=== PATIENT | male | born 1955 | race Caucasian/White ===

== ENCOUNTER 2024-07-24 06:22 | Day surgery (SDC) | payer MEDICARE, OTHER, SELFPAY ==
[2024-06-30 13:28] LABS: Hematocrit 41.3 % (39.0-52.0); Hemoglobin 14.6 g/dL (13.0-18.0); Mean Corp Hgb Conc. 35.4 g/dL (33.0-37.0); Mean Corpuscular Hgb 33.9 pg (27.0-31.0); Mean Corpuscular Volume 95.8 fL (80.0-94.0); Mean Platelet Volume 10.7 fL (7.4-10.4); Platelet Count 201 10^3/uL (130-400); Red Blood Cell Count 4.31 10^6/uL (4.70-6.10); Red Cell Dist. Width 12.6 % (11.5-14.5); White Blood Cell Count 7.4 10^3/uL (4.8-10.8)
[2024-06-30 14:02] VITALS: BMI 29.4
[2024-06-30 14:45] LABS: Glycohemoglobin (HgbA1c) 5.3 % (4.0-5.6)
[2024-06-30 14:52] LABS: ALT (SGPT) 45 U/L (0-50); AST (SGOT) 46 U/L (17-59); Albumin 4.9 g/dl (3.5-5.0); Alkaline Phosphatase 46 U/L (38-126); Blood Urea Nitrogen 19 mg/dl (9-20); Calcium 9.8 mg/dl (8.4-10.2); Carbon Dioxide 27 mmol/L (22-30); Chloride 102 mmol/L (98-107); Estimated Creatinine Clearance 89 ml/min; Glucose 99 mg/dl (70-99); Potassium 4.7 mmol/L (3.5-5.1); Sodium 140 mmol/L (135-145); Total Bilirubin 1.2 mg/dl (0.2-1.3); Total Protein 7.1 g/dl (6.3-8.2); eGFR > 60.00
--- NOTE | 2024-07-10 14:37 | VNURNOTE ---
Patient is scheduled for an elective R TKA on 07/24/24- he is a same day patient with Dr Ferrera. Spoke with patient prior to surgery. Introduced role of [facility] Liaison. Patient reports that he lives with his in a MULTI story home. There is a
first floor set up with a bedroom and bathroom on first level.
There is 1 step to enter. Patient has a dog. Pet policy reviewed.
He currently functions independently. He has a raised toilet seat, cane and rolling walker.
PCP is Ayah Escobar
Discussed [facility] joint protocol and post surgical plans.
Reviewed that he will have VN services initially and will then start outpatient PT.
Patient selects VN for his home care needs and will go to [facility] in [place] for outpatient PT. Scheduled for 07/27.
Patient is in agreement with plan and states that his will be home with him. Advised to bring RW with him day of surgery. Referral placed in [facility].
Plan: [facility] per [facility] joint protocol then outpt PT on 07/27
[2024-07-18 11:20] VITALS: BMI 29.4
[2024-07-24] VITALS (12 sets, daily range): BP systolic 142–169; BP diastolic 80–109; PULSE 66; O2SAT 96
[2024-07-24] MEDS: TYLENOL 650 MG PO ×2 (07:39→13:46)
[2024-07-24] MEDS: CELEBREX 200 MG PO (07:41)
--- NOTE | 2024-07-24 07:42 | W.DS.TRANS ---
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
-
Discharge Instructions:
Sleep Apnea Risk Intermediate
Discharge Diagnosis/Procedures Right knee replacement-Dr. Ferrera 07/24/24
Diet As tolerated
Activity As tolerated,With Walker
Driving Restrictions No driving
Bathing Restrictions OK to Shower
Wound Care Aquacel dressing in place then remove 7-10 days
Instructions:
Stand-Alone Forms: SDS Total Hip and Knee D/C
Changes to Home Medications: Yes
Discharge Medications:
DC Medications w/original date entered in [place]
coenzyme X48-hcvtwmd E 100 mg-5 unit capsule (Co Q-10 (with Vit E)) 1 ea PO DAILY 12/10/17
multivitamin with folic acid 400 mcg tablet (Tab-A-Tom) 1 tab PO DAILY 12/10/17
omega 0-lvy-qxn-fish oil 300 mg-1,000 mg capsule (Fish Oil) 1 ea PO DAILY 12/10/17
thiamine HCl (vitamin B1) 100 mg tablet 100 mg PO DAILY 12/12/17
atorvastatin 20 mg tablet 20 mg PO HS 07/18/24
lisinopril 5 mg tablet 5 mg PO DAILY 07/18/24
melatonin 2.5 mg/10 mL oral liquid 10 mg PO HS PRN insomnia 07/18/24
metoprolol tartrate 50 mg tablet 100 mg PO DAILY 07/18/24
mupirocin 2 % topical ointment 1 applic topical BID 07/18/24
red yeast rice 600 mg tablet 600 mg PO DAILY 07/18/24
saw palm 160 mg-vit E 100 unit-selen 100 heo-tisq-givcot-pygeum tablet (Prostate Health) tab PO DAILY 07/18/24
acetaminophen 500 mg capsule 1,000 mg (2 x 500 mg) PO Q6H PRN Pain #60 caps 07/24/24
aspirin 325 mg tablet 325 mg PO DAILY #30 tabs 07/24/24
celecoxib 100 mg capsule (Celebrex) 100 mg PO BID #30 caps 07/24/24
dexamethasone 4 mg tablet 4 mg PO BID #7 tabs 07/24/24
docusate sodium 100 mg capsule (Colace) 100 mg PO BID #14 caps 07/24/24
ondansetron 4 mg disintegrating tablet 4 mg PO Q8H #14 tabs 07/24/24
oxycodone 5 mg tablet 5 mg PO Q6H PRN Pain #30 tabs 07/24/24
sennosides 8.6 mg tablet (Senokot) 8.6 mg PO BID PRN Constipation #14 tabs 07/24/24
Home Medication Changes
acetaminophen 500 mg capsule 1,000 mg (2 x 500 mg) PO Q6H PRN Pain #60 caps 07/24/24
aspirin 325 mg tablet 325 mg PO DAILY #30 tabs 07/24/24
celecoxib 100 mg capsule (Celebrex) 100 mg PO BID #30 caps 07/24/24
dexamethasone 4 mg tablet 4 mg PO BID #7 tabs 07/24/24
docusate sodium 100 mg capsule (Colace) 100 mg PO BID #14 caps 07/24/24
ondansetron 4 mg disintegrating tablet 4 mg PO Q8H #14 tabs 07/24/24
oxycodone 5 mg tablet 5 mg PO Q6H PRN Pain #30 tabs 07/24/24
sennosides 8.6 mg tablet (Senokot) 8.6 mg PO BID PRN Constipation #14 tabs 07/24/24
Pending Results: No
--- NOTE | 2024-07-24 12:11 | SUR.PHASEI ---
Lunch relief, alert awake, vss, wiggling toes, denies c/o
[2024-07-24] MEDS: ANCEF 5 IV (13:53)
== END 2024-07-24 14:45 | disposition home or self-care (01) ==
LOC: SDS 06:22
PROVIDERS: ATTENDING PHYSICIAN Specialist; FAMILY PHYSICIAN Physician Assistant Medical
PROC: 0SRC0J9 Replacement of Right Knee Joint with Synthetic Substitute, Cemented, Open Approach (ICD-10-PCS; 2024-07-24)
DX: M17.11 Unilateral primary osteoarthritis, right knee (principal); I10 Essential (primary) hypertension; E78.5 Hyperlipidemia, unspecified; E66.9 Obesity, unspecified; Z68.30 Body mass index [BMI] 30.0-30.9, adult
CPT/HCPCS: 27447; 36415; 73560; 80053; 83036; 85027; 87070; 93005; 97116; C1713; C1776

== ENCOUNTER 2024-07-24 19:21 | Emergency (ER) | payer MEDICARE, OTHER, SELFPAY ==
[2024-07-24 19:27] VITALS: BP 151/104
--- NOTE | 2024-07-24 19:49 | ED.GENMED ---
History of Present Illness
General
Chief Complaint: Male Genito-Urinary Symptoms
Source: patient
Time Seen by Provider: 07/24/24 19:39
History of Present Illness
History of Present Illness:
69yoM with a history of hypertension presenting for evaluation of urinary retention. Patient underwent R knee replacement this afternoon with spinal anesthesia. He lost control of his bladder in PACU. He states he was still numb after the spinal
anesthesia when this occurred. Since discharge, he has been unable to urinate. He is presenting with suprapubic/lower abdominal discomfort. No fevers or vomiting. No prior history of urinary retention and no known history of BPH although PSA was
elevated last month.
Past History
Past History
ED Past Medical History: HTN
ED Past Surgical History: None
Patient has exhibited threatening behavior?: No
Social History
Personal:
Living: with family
Phy Exam
Physical Exam
Physical Exam:
Appears uncomfortable 2/2 pain, non-toxic
General Physical Exam
General Presentation: moderate distress
General age: appears stated age
General Skin: warm and dry
General Habitus: normal
General Mental: alert
ENT Exam
ENT Exam: normocephalic
Pulmonary Exam
Pulmonary Exam: no respiratory distress
Gastrointestinal Exam
Gastrointestinal Exam: soft and other (+Suprapubic tenderness)
Neurological Exam
Neurological Exam: alert
Geoff Coma Scale
Eye Opening: Spontaneous
Verbal Response: Oriented
Motor Response: Obeys Commands
GCS Total Score: 15
Skin Exam
Skin Exam: normal color and warm/dry
Course
Orders/Labs/Results
Orders:
Orders
07/24/24 19:39
Bladder Scan- Treatment ONCE
07/24/24 19:48
Hatch [Hatch Placement- Treatment] ONCE
Reason for insertion: Acute Retention
07/24/24 19:52
Urinalysis Reflex To Culture Urgent
Date Specimen was Collected: 07/24/24
Time Specimen was Collected: 19:48
07/24/24 20:30
Bedside Glucose- Treatment ONCE
Abnormal Lab Results
07/24/24 07/24/24
19:52 20:34
Urine Ketones Trace A
(Negative)
Urine Glucose 3+ A
(Negative)
POC Glucose 278 H mg/dl
(70-99)
Vital Signs
Initial and Last Documented VS:
Initial Vital Signs
Temp Pulse Resp BP Pulse Ox
98.1 F 117 18 151/104 99
07/24/24 19:27 07/24/24 19:27 07/24/24 19:27 07/24/24 19:27 07/24/24 19:27
Last Documented Vital Signs
Temp Pulse Resp BP Pulse Ox
98.1 F 117 18 173/97 99
07/24/24 19:27 07/24/24 19:27 07/24/24 19:27 07/24/24 19:59 07/24/24 19:27
MDM/Problems Addressed
Differential Diagnosis Includes:
69yoM here with urinary retention after undergoing a knee replacement today with spinal anesthesia. Unable to urinate since discharge. C/o suprapubic pain/pressure. He is hypertensive and tachycardic, likely 2/2 acute pain. Temperature 98.1.
Differential diagnosis includes but is not limited to: urinary retention, BPH, side effect of anesthesia
Bladder scan >950cc. Nursing staff at bedside placing Hatch catheter. Catheter insertion successful and clear yellow urine draining.
*Critical Care Note
Total Time (30-74mins, 75-104mins- exclusive of procedures): Not Applicable
Update Note
Update Note:
1000ml urine return after catheter insertion. Symptoms completely resolved on reassessment. UA with 3+ glucose without signs of infection. No prior history of diabetes. Blood work from 06/30/24 showed a glucose of 99. Anesthesia records reviewed and
patient did receive 10mg Decadron as part of the nerve block today. He was also discharged on a course of PO Decadron and had a dose this evening. Suspect hyperglycemia is a reaction from the steroids. No indication for hospitalization. He was
advised to have repeat blood work in 1 week to recheck his glucose. Catheter care instructions provided by nursing staff. Patient advised to call urology tomorrow morning to schedule an appt for catheter removal. ED return precautions discussed. He
expressed understanding and is in agreement with plan. He was discharged in stable condition.
ED Attending Note
-
Portions of this chart may have been created with voice recognition software.� Occasional wrong word or��sound alike� substitutions may have occurred due to the inherent limitations of voice recognition software.
Discharge Plan
Departure
Patient Disposition: Home (Routine Discharge)
Date of Disposition: 07/24/24
Time of Disposition: 20:58
Patient with high blood pressure during this ER visit?: Yes
Discharge Problem:
Acute urinary retention, Hyperglycemia
Instructions: How to Care for Your Hatch Catheter, Male, Urinary Retention (DC)
Prescriptions:
No Action
coenzyme T20-vlntttl E [Co Q-10 (with Vit E)] 1 EACH capsule
1 ea PO DAILY
omega 2-qze-hmp-fish oil [Fish Oil] 1 EACH capsule
1 ea PO DAILY
multivitamin with folic acid [Tab-A-Tom] 1 TABLET tablet
1 tab PO DAILY
thiamine HCl (vitamin B1) 100 MG tablet
100 mg PO DAILY 0RF
atorvastatin 20 mg Tablet
20 mg PO HS
metoprolol tartrate 50 mg tablet
100 mg PO DAILY
lisinopril 5 mg Tablet
5 mg PO DAILY
red yeast rice 600 mg Tablet
600 mg PO DAILY
melatonin 2.5 mg/10 mL Liquid
10 mg PO HS PRN (Reason: insomnia)
Prostate Health 160-100-100 mg-unit-mcg Tablet
PO DAILY
mupirocin 2 % Ointment
1 applic TOPICAL BID
aspirin 325 mg tablet
325 mg PO DAILY Qty: 30 0RF
dexamethasone 4 mg tablet
4 mg PO BID Qty: 7 0RF
docusate sodium [Colace] 100 mg capsule
100 mg PO BID Qty: 14 0RF
celecoxib [Celebrex] 100 mg capsule
100 mg PO BID Qty: 30 0RF
ondansetron 4 mg tablet,disintegrating
4 mg PO Q8H Qty: 14 0RF
acetaminophen 500 mg capsule
1,000 mg PO Q6H MDD 4000mg PRN (Reason: Pain) Qty: 60 0RF
Patient Comments:
last had 1500 mg at 1200 12/8
oxycodone 5 mg tablet
5 mg PO Q6H PRN (Reason: Pain) Qty: 30 0RF
sennosides [Senokot] 8.6 mg tablet
8.6 mg PO BID PRN (Reason: Constipation) Qty: 14 0RF
Referrals:
Toby Mendoza MD [Active] -
Ayah Escobar PA-C [Family Provider] -
Activity Restrictions/Additional Instructions:
Call tomorrow morning to schedule a follow-up appointment with urology for catheter removal.
You should have repeat blood work next week to monitor your glucose levels.
Return to the ER with any worsening symptoms, fevers, or if your catheter stops draining.
Interventions
Interventions:
*General Assessment Last Done: 07/24/24 19:27
*Neglect/Abuse Screening Last Done: 07/24/24 19:27
ED- Fall Risk Assessment Last Done: 07/24/24 20:56
ED-Male Genitourinary Assessment Last Done: 07/24/24 20:56
Discharge Date and Time
Print Language: TURKISH
[2024-07-24 19:59] VITALS: BP 173/97
[2024-07-24 20:00] VITALS: BMI 30.5
[2024-07-24 20:06] LABS: Urine Albumin Negative (Neg - Trace); Urine Bilirubin Negative (Negative); Urine Character Clear (Clear); Urine Color Yellow; Urine Glucose 3+ (Negative); Urine Ketone Trace (Negative); Urine Leukocyte Negative (Negative); Urine Nitrite Negative (Negative); Urine Occult Blood Negative (Negative); Urine Specific Gravity 1.015 (<1.030); Urine Urobilinogen Negative (Neg - 1+)
[2024-07-24 20:36] LABS: Glucose - Point of Care 278 mg/dl (70-99)
== END 2024-07-24 21:41 | disposition home or self-care (01) ==
LOC: EMR 19:21
PROVIDERS: Physician Assistant; EMERGENCY PHYSICIAN Emergency Medicine; FAMILY PHYSICIAN Physician Assistant Medical
DX: R33.9 Retention of urine, unspecified (principal); R73.9 Hyperglycemia, unspecified; I10 Essential (primary) hypertension; Z96.651 Presence of right artificial knee joint
CPT/HCPCS: 51702; 99283; 81003; 82962

== ENCOUNTER → 2025-02-09 13:05 | Outpatient (REF) | payer MEDICARE, OTHER, SELFPAY | LOC: MRI 3T 13:05 | PROVIDERS: ATTENDING PHYSICIAN Specialist; FAMILY PHYSICIAN Physician Assistant Medical | DX: R97.20 Elevated prostate specific antigen [PSA] (principal) | CPT/HCPCS: 72197; A9575 ==

== ENCOUNTER → 2025-03-07 08:52 | Outpatient (REF) | payer MEDICARE, OTHER, SELFPAY ==
[2025-03-07 10:37] LABS: Hematocrit 40.3 % (39.0-52.0); Hemoglobin 14.3 g/dL (13.0-18.0); Mean Corp Hgb Conc. 35.5 g/dL (33.0-37.0); Mean Corpuscular Volume 97.1 fL (80.0-94.0); Platelet Count 220 10^3/uL (130-400); Red Cell Dist. Width 12.3 % (11.5-14.5)
[2025-03-07 11:58] LABS: Blood Urea Nitrogen 15 mg/dl (9-20); Calcium 9.6 mg/dl (8.4-10.2); Carbon Dioxide 25 mmol/L (22-30); Chloride 107 mmol/L (98-107); Glucose 88 mg/dl (70-99); Potassium 4.6 mmol/L (3.5-5.1); Sodium 141 mmol/L (135-145); eGFR > 60.00
== END ==
LOC: SDSPAT 08:52
PROVIDERS: ATTENDING PHYSICIAN Specialist; FAMILY PHYSICIAN Physician Assistant Medical
DX: Z01.818 Encounter for other preprocedural examination (principal)
CPT/HCPCS: 36415; 80048; 85027; 93005

== ENCOUNTER 2025-03-13 06:22 | Day surgery (SDC) | payer MEDICARE, OTHER, SELFPAY ==
[2025-03-07 14:16] VITALS: BMI 29.2
[2025-03-13] MEDS: NORMOSOL-R/PLASMALYTE-A 1000 IV (07:52)
[2025-03-13] MEDS: NEOMYCIN ENEMA 1 BOTTLE RECTAL (07:58)
[2025-03-13 08:00] VITALS: BP 174/99
[2025-03-13 08:04] VITALS: BMI 29.2
[2025-03-13 08:53] VITALS: BP 126/84
[2025-03-13 09:00] VITALS: BP 133/82
[2025-03-13 09:15] VITALS: BP 124/77
[2025-03-13 09:30] VITALS: BP 129/82
== END 2025-03-13 09:50 | disposition home or self-care (01) ==
LOC: SDS 06:22
PROVIDERS: ATTENDING PHYSICIAN Specialist
DX: C61 Malignant neoplasm of prostate (principal); R97.20 Elevated prostate specific antigen [PSA]
CPT/HCPCS: 55700; 76998; 88305

== ENCOUNTER 2025-07-02 06:58 | Outpatient (RCR) | payer MEDICARE, OTHER, SELFPAY | END 2025-07-02 23:59 | disposition home or self-care (01) | LOC: RPT 06:58 | PROVIDERS: ATTENDING PHYSICIAN Urology; FAMILY PHYSICIAN Physician Assistant Medical | DX: C61 Malignant neoplasm of prostate (principal); Z73.6 Limitation of activities due to disability | CPT/HCPCS: 97112; 97162; 97530 ==

== ENCOUNTER → 2025-07-18 09:12 | Outpatient (REF) | payer MEDICARE, OTHER, SELFPAY ==
[2025-07-18 11:00] LABS: Hematocrit 41.7 % (39.0-52.0); Hemoglobin 14.7 g/dL (13.0-18.0); Mean Corp Hgb Conc. 35.3 g/dL (33.0-37.0); Mean Corpuscular Volume 94.8 fL (80.0-94.0); Platelet Count 209 10^3/uL (130-400); Red Cell Dist. Width 12.0 % (11.5-14.5)
[2025-07-18 11:41] LABS: Blood Urea Nitrogen 12 mg/dl (9-20); Calcium 9.5 mg/dl (8.4-10.2); Carbon Dioxide 29 mmol/L (22-30); Chloride 102 mmol/L (98-107); Glucose 99 mg/dl (70-99); Potassium 4.2 mmol/L (3.5-5.1); Sodium 138 mmol/L (135-145); eGFR > 60.00
== END ==
LOC: SDSPAT 09:12
PROVIDERS: ATTENDING PHYSICIAN Urology; FAMILY PHYSICIAN Physician Assistant Medical
DX: Z01.818 Encounter for other preprocedural examination (principal)
CPT/HCPCS: 36415; 80048; 85027; 86850; 86900; 86901

== ENCOUNTER 2025-07-26 06:17 | Day surgery (SDC) | payer MEDICARE, OTHER, SELFPAY ==
[2025-07-18 13:53] VITALS: BMI 29.8
[2025-07-26] VITALS (12 sets, daily range): BP systolic 105–175; BP diastolic 61–101; BMI 29.8
[2025-07-26] MEDS: NORMOSOL-R/PLASMALYTE-A 1000 IV ×2 (11:07→18:33)
--- NOTE | 2025-07-26 16:47 | W.IMMPOSTOP ---
Surgical Immed Post Op Note
-
Primary Surgeon: Carriefer
Assisting Surgeon: -
Pre-op Diagnosis: Prostate cancer
Post-op Diagnosis: same
Procedure Performed: RALP/PLND
Anesthesia Type: General
Specimen / Cultures: Prostate, SVs, lymph nodes
Estimated Blood Loss: 100cc
Complications: none
Operative Findings: -
[2025-07-26 17:21] LABS: Hematocrit 38.7 % (39.0-52.0); Hemoglobin 13.5 g/dL (13.0-18.0)
[2025-07-26] MEDS: SUBLIMAZE 50 MCG IV (17:28)
[2025-07-26] MEDS: SUBLIMAZE 25 MCG IV (17:40)
[2025-07-26 17:43] LABS: Blood Urea Nitrogen 16 mg/dl (9-20); Calcium 8.2 mg/dl (8.4-10.2); Carbon Dioxide 20 mmol/L (22-30); Chloride 103 mmol/L (98-107); Estimated Creatinine Clearance 77 ml/min; Glucose 159 mg/dl (70-99); Potassium 4.3 mmol/L (3.5-5.1); Sodium 134 mmol/L (135-145); eGFR > 60.00
[2025-07-26] MEDS: ZOFRAN 4 MG IV (18:05)
--- NOTE | 2025-07-26 18:35 | PTCARENOTE ---
Pt arrived to [facility] s/p robotic prostatectomy. 6 lap sites & 1 incision CHILD CARE ASSISTANT with glue. Hatch with erik output. Knee high teds/scds on pt. Admission questions answered. IVF infusing. PRN morphine given for pain see OCT. Bed locked and in lowest
position. Care ongoing.
[2025-07-26] MEDS: MORPHINE SULFATE 4 MG IV (18:36)
[2025-07-26] MEDS: LOVENOX 40 MG SC (18:36)
[2025-07-26] MEDS: SENOKOT 17.2 MG PO (20:21)
[2025-07-26] MEDS: LIPITOR 20 MG PO (21:57)
[2025-07-26] MEDS: PERCOCET 5/325 1 TABLET PO (22:04)
[2025-07-26] MEDS: TORADOL 15 MG IV (23:19)
[2025-07-27] VITALS (7 sets, daily range): BP systolic 94–157; BP diastolic 49–96
[2025-07-27] MEDS: NORMOSOL-R/PLASMALYTE-A 1000 IV (01:28)
[2025-07-27] MEDS: ZOFRAN 4 MG IV (01:40)
[2025-07-27] MEDS: PERCOCET 5/325 1 TABLET PO ×3 (02:04→21:05)
[2025-07-27 03:40] LABS: Glucose - Point of Care 191 mg/dl (70-99)
[2025-07-27] MEDS: TORADOL 15 MG IV (05:35)
--- NOTE | 2025-07-27 06:00 | PTCARENOTE ---
Indwelling urinary catheter bag changed to leg bag per order at 0600. Pt educated and demonstrated appropriate understanding. Care ongoing.
[2025-07-27 06:56] LABS: Hematocrit 31.1 % (39.0-52.0); Hemoglobin 11.2 g/dL (13.0-18.0); Mean Corp Hgb Conc. 36.0 g/dL (33.0-37.0); Mean Corpuscular Volume 95.7 fL (80.0-94.0); Platelet Count 220 10^3/uL (130-400); Red Cell Dist. Width 12.0 % (11.5-14.5)
[2025-07-27 07:23] LABS: Blood Urea Nitrogen 20 mg/dl (9-20); Calcium 7.9 mg/dl (8.4-10.2); Carbon Dioxide 23 mmol/L (22-30); Chloride 99 mmol/L (98-107); Estimated Creatinine Clearance 70 ml/min; Glucose 188 mg/dl (70-99); Potassium 4.0 mmol/L (3.5-5.1); Sodium 132 mmol/L (135-145); eGFR > 60.00
--- NOTE | 2025-07-27 08:28 | CM ---
multimedia manager reviewed patient's chart and met with patient and reports he lives with his spouse in a 2 story home with one step to enter, bed and bathroom on first floor, patient is independent with adl's and ambulation, patient has a raised toilet
seat, walker and cane in home, plan is to home with visiting nurses, visiting nurses options have been reviewed and patient has selected [facility], [facility] contacted to set up vn for Hatch Care.
PCP: Ayah Escobar
Pharmacy: [facility] in [place]
Plan; Home with VN
[2025-07-27] MEDS: NSS 1000 IV (08:44)
--- NOTE | 2025-07-27 08:46 | W.PN.URO.CBU ---
Today's Communication / Plan
-
IVF
Trend HGB
Observation
Assessment / Plan
-
70M POD 1 s/o robotic prostatectomy for prostate cancer
- Tachycardia this AM and more than expected HGB decrease suggests some post surgical bleeding
- Fluid bolus
- Encouraged PO fluids
- Trend HGB at noon
- Giving normal BP medications due to hypertension this AM
- Reg diet
- OOB/chair - hold ambulation at this time
Diagnosis
-
Date of Service: July 27, 2025
-
Patient Diagnosis:
Prostate cancer
Anemia likely due to post surgical bleeding
Post Op s/p prostatectomy 07/26
Subjective
-
Feeling well overnight other than slightly dizzy
Tolerating diet and liquids
Minimal pain
No hematuria
BPs high
Objective
-
Vital Signs
Temp Pulse Resp BP Pulse Ox
98.2 F 115 16 141/96 94
07/27/25 07:15 07/27/25 08:38 07/27/25 08:38 07/27/25 08:38 07/27/25 07:15
Intake and Output
07/26/25 07/27/25 07/28/25
06:59 06:59 06:59
Intake Total 4000 / 4000
Output Total 450 / 450
Balance 3550 / 3550
Intake:
Oral fluids 1800 / 1800
IV fluids (Total) 2200 / 2200
Normosal 400 / 400
Output:
Urine, Hatch 350 / 350
Urine, Voided 100 / 100
Laboratory Results
07/27/25 06:32
Physical Exam
-
General - well developed, well nourished, no acute distress
Chest - clear , unlabored
Abdomen - soft, non-tender, positive bowel sounds, no CVAT, no incisional pain or distention
Hatch with slightly dark yellow urine
Skin - warm & dry with no rash
Neuro - AOx3, no motor deficits
Incision - clean, dry
[2025-07-27] MEDS: ZESTRIL 5 MG PO (08:48)
[2025-07-27] MEDS: LOPRESSOR 100 MG PO (08:48)
[2025-07-27] MEDS: PEPCID 20 MG PO (08:48)
[2025-07-27] MEDS: SENOKOT 17.2 MG PO ×2 (08:48→19:55)
--- NOTE | 2025-07-27 08:55 | PTCARENOTE ---
Pt HR in the 100's dark erik urine output in hallman. Dr. Khan notified. IVF bolus ordered. Advised to hold off on ambulation at this time. Labs ordered at noon. Care ongoing.
--- NOTE | 2025-07-27 09:03 | VNURNOTE ---
Home Health Liaison met with patient at bedside to discuss [facility] nurse/therapy, visits, schedule and homebound status. Patient is agreeable and understands that visits at home will be 2-3 x per week to assess and teach medical and hallman
management. Patient stated he had a hallman in the past and knows how to empty it. Patient is aware that [facility] will contact them for start of care within 1-2 days after discharge from . Provided contact number for [facility].
PM [facility] referral completed in [facility].
[2025-07-27] MEDS: TORADOL IV (11:50)
[2025-07-27 12:27] LABS: Hematocrit 27.5 % (39.0-52.0); Hemoglobin 9.8 g/dL (13.0-18.0); Mean Corp Hgb Conc. 35.6 g/dL (33.0-37.0); Mean Corpuscular Volume 96.8 fL (80.0-94.0); Platelet Count 192 10^3/uL (130-400); Red Cell Dist. Width 12.3 % (11.5-14.5)
[2025-07-27] MEDS: LIPITOR 20 MG PO (21:05)
[2025-07-28] MEDS: PERCOCET 5/325 1 TABLET PO ×2 (02:15→11:12)
[2025-07-28 07:00] VITALS: BP 134/82
[2025-07-28 07:36] LABS: Hematocrit 25.0 % (39.0-52.0); Hemoglobin 8.7 g/dL (13.0-18.0); Mean Corp Hgb Conc. 34.8 g/dL (33.0-37.0); Mean Corpuscular Volume 96.5 fL (80.0-94.0); Nucleated Red Blood Cells % 0 % (-); Platelet Count 155 10^3/uL (130-400); Red Cell Dist. Width 12.3 % (11.5-14.5)
[2025-07-28 07:56] LABS: Blood Urea Nitrogen 18 mg/dl (9-20); Calcium 7.5 mg/dl (8.4-10.2); Carbon Dioxide 27 mmol/L (22-30); Chloride 102 mmol/L (98-107); Estimated Creatinine Clearance 96 ml/min; Glucose 117 mg/dl (70-99); Potassium 4.0 mmol/L (3.5-5.1); Sodium 134 mmol/L (135-145); eGFR > 60.00
[2025-07-28] MEDS: ZESTRIL 5 MG PO (08:28)
[2025-07-28] MEDS: SENOKOT 17.2 MG PO (08:28)
[2025-07-28] MEDS: LOPRESSOR 100 MG PO (08:28)
[2025-07-28] MEDS: PEPCID 20 MG PO (08:28)
[2025-07-28] MEDS: TYLENOL 650 MG PO (08:39)
--- NOTE | 2025-07-28 08:45 | W.PN.URO.CBU ---
Today's Communication / Plan
-
Recheck afternoon H&H - no need for blood products now given patient is euvolemic with normal VSS, exam and UOP
Check orthostatic vital signs
Anticipate pt will stay here today
Assessment / Plan
-
70M POD 2 s/p robotic prostatectomy for prostate cancer
- Recheck afternoon H&H - no need for blood products now given patient is euvolemic with normal VSS, exam and UOP
- Check orthostatic vital signs
- Encouraged PO fluids
- Continue home BP meds - hold parameters for SBP < 120, BP this morning 130s/80s
- Reg diet
- OOB/ambulation encouraged
Diagnosis
-
Date of Service: July 28, 2025
-
Patient Diagnosis:
Post Op Day:
Patient Diagnosis:
Prostate cancer
Anemia likely due to post surgical bleeding
Post Op s/p prostatectomy 07/26
Subjective
-
No overnight issues. Pt doing well, tolerating diet. Passing small amt of flatus
No fevers/chills, nausea/vomiting. Has not been OOB since yesterday. No dizziness/light-headedness
UOP adequate, Hgb drifted to 8.7 from 9.8, WBC down to 12 and Cr 0.8. UOP adequate, VSS
Objective
-
Vital Signs
Temp Pulse Resp BP Pulse Ox
97.7 F 91 16 134/82 96
07/28/25 07:00 07/28/25 08:28 07/28/25 07:00 07/28/25 08:28 07/28/25 07:00
Intake and Output
07/27/25 07/28/25 07/29/25
06:59 06:59 06:59
Intake Total 4000 / 4000 2440 / 2440
Output Total 450 / 450 2049
Balance 3550 / 3550 390 / 390
Intake:
Oral fluids 1800 / 1800 1440 / 1440
IV fluids (Total) 2200 / 2199 1000 / 1000
Normosal 400 / 400
Output:
Urine, Hallman 350 / 350 2049
Urine, Voided 100 / 100
Laboratory Results
07/28/25 07:08
07/28/25 07:08
Physical Exam
-
General - well developed, well nourished, no acute distress
Chest - clear bilaterally
Abdomen - soft, appropriately TTP, mildly distended, no flank/pelvic ecchymosis or bruising
Genitalia - normal, hallman yellow
Skin - warm & dry with no rash
Neuro - AOx3, no motor deficits
Extremities - no clubbing, no cyanosis, no edema
Incision - clean, dry
Dressing - clean, dry, intact
[2025-07-28 09:13] VITALS: BP 102/63; BP 108/70; BP 124/77; PULSE 79; PULSE 82; PULSE 83
[2025-07-28 12:51] LABS: Hematocrit 25.2 % (39.0-52.0); Hemoglobin 9.1 g/dL (13.0-18.0)
--- NOTE | 2025-07-28 14:40 | W.PN.UPDATE ---
Update Note
Progress Note Update
Repeat afternoon Hgb increased to 9.1. Patient feeling well. VSS, UOP adequate. No orthostatic hypotension. Will dc patient.
[2025-07-28 15:00] VITALS: BP 123/74
--- NOTE | 2025-07-28 16:48 | CM ---
Patient has been medically cleared for discharge to home with [facility] RN services. Patient arranged for transport home.
== END 2025-07-28 15:37 | disposition home or self-care (01) ==
LOC: SDS 06:17
PROVIDERS: Student in an Organized Health Care Education/Training Program; ATTENDING PHYSICIAN Urology
DX: C61 Malignant neoplasm of prostate (principal)
CPT/HCPCS: 55866; 38571; 80048; 82962; 85014; 85018; 85025; 85027; 86900; 86901; 88305; 88307; 88309; 88331; 88344